=== PATIENT | male | born 1975 ===

== ENCOUNTER 2019-02-09 14:45 | Outpatient (RCR) | payer BC | END 2019-02-16 | disposition still patient (30) | LOC: WSPT | DX: M75.81 Other shoulder lesions, right shoulder (principal); M75.101 Unspecified rotator cuff tear or rupture of right shoulder, not specified as traumatic ==

== ENCOUNTER 2022-08-08 08:01 | Outpatient (RCR) | payer BC | END 2022-08-10 | disposition home or self-care (01) | LOC: PT.GENESIS | DX: M23.92 Unspecified internal derangement of left knee (principal); M75.82 Other shoulder lesions, left shoulder ==

== ENCOUNTER 2022-09-05 07:45 | Outpatient (RCR) | payer BC | END 2022-09-09 | disposition home or self-care (01) | LOC: PT.GENESIS | DX: M23.92 Unspecified internal derangement of left knee (principal); M75.82 Other shoulder lesions, left shoulder ==